=== PATIENT | male | born 1950 | race Caucasian/White ===

== ENCOUNTER → 2019-09-15 | Outpatient (CLI) | payer OTHER ==
--- NOTE | 2019-09-15 10:39 | RADIOLOGY REPORT (SQ) ---
EXAM DESCRIPTION: MRI LT LOWER JOINT WITHOUT; MRI RT LOWER JOINT WITHOUT COMPLETED DATE/TIME: 09/15/2019 9:39 am REASON FOR STUDY: BILATERAL HIP ARTHRITIS COMPARISON: None. TECHNIQUE: Right and lefthip images acquired and stored on PACS. Multiplanar images to include fat s ensitive sequences as T1, fluid sensitive sequences as T2/STIR and gradient echo sequences. Large FOV fat and fluid sensitive sequences include pelvis and opposite hip. LIMITATIONS: Small [id number] thin section axial coronal and sagittal images are degraded by limi osiel signal to noise FINDINGS: BONE CORTEX AND MARROW: There is marrow edema in the right innominate bone, between the in ferior aspect of the SI joint and the acetabular roof this is worrisome for marrow replacement proces s versus insufficiency fracture, correlation with CT and bone scan would be useful for followup. The se findings are best shown on axial series 11 image 6, coronal series 6 image 25, and axial whole pel vis series 7 image 15. RIGHT HIP: FEMORAL HEAD: There is advanced osteoarthritis at the right hip joint, with high-grade chondromalacia and a [id number]-kt-[id number] appearance. Subcortical marrow edema is present in the right femoral head extend ing into the lateral aspect of the right femoral neck. Minimal reactive marrow edema in the acetabul ar roof. No articular surface femoral head collapse. ACETABULUM: Mild reactive marrow edema in the acetabular roof LABRUM: Grossly intact. No paralabral cysts. TROCHANTER: Trace trochanteric bursal effusion with mild edema at the distal insertions of the gluteu s medius and dylan, best shown on coronal images 21-26. LEFT HIP: FEMORAL HEAD: No occult fracture. No osteophytes or subchondral cysts. Normal sphericity of femoral h ead/neck junction. No acetabular dysplasia. No evidence femoroacetabular impingement. No significant effusion. Mild chondromalacia ACETABULUM: No acetabular dysplasia. No subchondral cysts. LABRUM: Grossly intact. No paralabral cysts. TROCHANTER: No trochanteric bursal effusion. No edema/fluid at the insertions of the gluteus medius and gluteus minimus. PELVIS, LOWER LUMBAR SPINE, SACROILIAC JOINTS: PELVIS : Abnormal marrow signal right innominate bone as above. Remainder of the bony pelvis is inta ct. L SPINE: Lower lumbar spine transpedicular screws and dorsal fixation plates. Mild muscle edema in t he paraspinal muscles distally on coronal images 35-38. MUSCLES AND SOFT TISSUES: Adductors and piriformis normal. Iliopsoas bursa without fluid. Hamstring attachments without edema. No gross tear. PELVIC SOFT TISSUES: No masses or adenopathy. SCIATIC NERVE: Identified, without masses or abnormal signal. OTHER: No other significant finding. IMPRESSION: Osteoarthritis right hip Right trochanteric bursa inflammation Mild chondromalacia left hip joint. Abnormal marrow signal in the right innominate bone between the acetabulum and inferior edge of the S I joint. Differential is marrow replacement process versus stress fracture. Consider further felipe patel with CT and bone scan TECHNICAL DOCUMENTATION: JOB ID: [id number] [employer]- All Rights Reserved Reading location - IP/workstation name: [email or web address]
--- NOTE | 2019-09-15 10:39 | RADIOLOGY REPORT (SQ) ---
EXAM DESCRIPTION: MRI LT LOWER JOINT WITHOUT; MRI RT LOWER JOINT WITHOUT COMPLETED DATE/TIME: 09/15/2019 9:39 am REASON FOR STUDY: BILATERAL HIP ARTHRITIS COMPARISON: None. TECHNIQUE: Right and lefthip images acquired and stored on PACS. Multiplanar images to include fat s ensitive sequences as T1, fluid sensitive sequences as T2/STIR and gradient echo sequences. Large FOV fat and fluid sensitive sequences include pelvis and opposite hip. LIMITATIONS: Small gjgue-[id number]-[id number] thin section axial coronal and sagittal images are degraded by limi osiel signal to noise FINDINGS: BONE CORTEX AND MARROW: There is marrow edema in the right innominate bone, between the in ferior aspect of the SI joint and the acetabular roof this is worrisome for marrow replacement proces s versus insufficiency fracture, correlation with CT and bone scan would be useful for followup. The se findings are best shown on axial series 11 image 6, coronal series 6 image 25, and axial whole pel vis series 7 image 15. RIGHT HIP: FEMORAL HEAD: There is advanced osteoarthritis at the right hip joint, with high-grade chondromalacia and a [id number] appearance. Subcortical marrow edema is present in the right femoral head extend ing into the lateral aspect of the right femoral neck. Minimal reactive marrow edema in the acetabul ar roof. No articular surface femoral head collapse. ACETABULUM: Mild reactive marrow edema in the acetabular roof LABRUM: Grossly intact. No paralabral cysts. TROCHANTER: Trace trochanteric bursal effusion with mild edema at the distal insertions of the gluteu s medius and dylan, best shown on coronal images 21-26. LEFT HIP: FEMORAL HEAD: No occult fracture. No osteophytes or subchondral cysts. Normal sphericity of femoral h ead/neck junction. No acetabular dysplasia. No evidence femoroacetabular impingement. No significant effusion. Mild chondromalacia ACETABULUM: No acetabular dysplasia. No subchondral cysts. LABRUM: Grossly intact. No paralabral cysts. TROCHANTER: No trochanteric bursal effusion. No edema/fluid at the insertions of the gluteus medius and gluteus minimus. PELVIS, LOWER LUMBAR SPINE, SACROILIAC JOINTS: PELVIS : Abnormal marrow signal right innominate bone as above. Remainder of the bony pelvis is inta ct. L SPINE: Lower lumbar spine transpedicular screws and dorsal fixation plates. Mild muscle edema in t he paraspinal muscles distally on coronal images 35-38. MUSCLES AND SOFT TISSUES: Adductors and piriformis normal. Iliopsoas bursa without fluid. Hamstring attachments without edema. No gross tear. PELVIC SOFT TISSUES: No masses or adenopathy. SCIATIC NERVE: Identified, without masses or abnormal signal. OTHER: No other significant finding. IMPRESSION: Osteoarthritis right hip Right trochanteric bursa inflammation Mild chondromalacia left hip joint. Abnormal marrow signal in the right innominate bone between the acetabulum and inferior edge of the S I joint. Differential is marrow replacement process versus stress fracture. Consider further felipe patel with CT and bone scan TECHNICAL DOCUMENTATION: JOB ID: [id number] [email or web address]- All Rights Reserved Reading location - IP/workstation name: [email or web address]
== END ==
LOC: RAD 08:02
PROVIDERS: ATTEND Physician Assistant Medical
DX: M16.0 Bilateral primary osteoarthritis of hip (principal)